=== PATIENT | female | born 1995 | race Caucasian/White ===

== ENCOUNTER 2017-09-01 12:37 | Inpatient (IN) | payer OTHER ==
[~2017-09-01] VITALS: Ht 160 cm; Wt 66.0 kg
--- OUTSIDE RECORDS SUMMARY | ~2017-09-01 | XMS ---
Demographics + + + | Address | [address] | | | [address] | | | [place] [address] | + + + | Preferred Language | Unknown | + + + | Marital Status | Unknown | + + + | Pentecostalism Affiliation | Unknown | + + + | Race | Unknown | + + + | Ethnic Group | Unknown | + + + Author + + + | Author | [facility] | + + + | Organization | [facility] | + + + | Address | [address] | | | [place] [address] | + + + | Phone | | + + + Care Team Providers + + + + | Care Medical Apparatus Model Maker Name | Role | Phone | + + + + Unavailable | Unavailable | + + + + PROBLEMS +---------+ + + +--------+ + + | Type | Condition | ICD9-CM | [id number] | Onset | Condition | SNOMED | | | | Code | Code | Dates | Status | Code | +---------+ + + +--------+ + + | Problem | Fibromyalg | M79.7 | | | Active | [id number] | | | ia | | | | | | | | affecting | | | | | | | | multiple | | | | | | | | sites | | | | | | +---------+ + + +--------+ + + | Problem | Other | G89.29 | | | Active | 49339357 | | | chronic | | | | | | | | pain | | | | | | +---------+ + + +--------+ + + | Problem | Generalize | R52 | | | Active | 51783437 | | | d pain | | | | | | +---------+ + + +--------+ + + | Problem | Encounter | Z34.90 | | | Active | 40727835 | | | for | | | | | | | | supervisio | | | | | | | | n of | | | | | | | | normal | | | | | | | | | | | | | | +---------+ + + +--------+ + + | Problem | Neurologic | R29.818 | | | Active | | | | al | | | | | | | | abnormalit | | | | | | | | y | | | | | | +---------+ + + +--------+ + + | Problem | Sleep | G47.20 | | | Active | 59917485 | | | pattern | | | | | | | | disturbanc | | | | | | | | e | | | | | | +---------+ + + +--------+ + + | Problem | Acute pain | M25.561 | | | Active | 964574448 | | | of right | | | | | | | | knee | | | | | | +---------+ + + +--------+ + + | Problem | Gait | | R26.9 | | Active | 15153115 | | | abnormalit | | | | | | | | y | | | | | | +---------+ + + +--------+ + + | Problem | Fibromyalg | | M79.7 | | Active | 419486087 | | | ia | | | | | | +---------+ + + +--------+ + + | Problem | Psychosis | F29 | | | Active | 36786156 | +---------+ + + +--------+ + + | Problem | Compressio | T14.8 | | | Active | 39519333 | | | n fracture | | | | | | +---------+ + + +--------+ + + | Problem | Spondylist | M43.10 | | | Active | 865546211 | | | hesis | | | | | | +---------+ + + +--------+ + + | Problem | Depression | | F41.8 | | Active | 490984539 | | | with | | | | | | | | anxiety | | | | | | +---------+ + + +--------+ + + | Problem | Degenerati | | M19.90 | | Active | 280488109 | | | ve joint | | | | | | | | disease | | | | | | +---------+ + + +--------+ + + | Problem | History of | Z87.42 | | | Active | 45061641 | | | ovarian | | | | | | | | cyst | | | | | | +---------+ + + +--------+ + + | Problem | Scoliosis | M41.9 | | | Active | 861428257 | +---------+ + + +--------+ + + ALLERGIES + + + + +--------+ | Substance | Reaction | Event Type | Date | Status | + + + + +--------+ | Morphine | rash | Drug Allergy | Jul, | Active | + + + + +--------+ | Vicodin | rash | Drug Allergy | Jul, | Active | + + + + +--------+ | Dilaudid | rash | Drug Allergy | Jul, | Active | + + + + +--------+ SOCIAL HISTORY Never Assessed PLAN OF CARE + +---------+ | Activity | Details | + +---------+ +---+ | | +---+ + + + | Follow Up | prn Reason:null | + + + VITAL SIGNS + + + + | Height | 64 in | 2017-07-24 | + + + + | Weight | 145 lbs | 2017-07-24 | + + + + | BMI | 24.89 kg/m2 | 2017-07-24 | + + + + | Temperature | 98.0 degrees Fahrenheit | 2017-07-24 | + + + + | Heart Rate | 102 /min | 2017-07-24 | + + + + | Blood pressure systolic | 117 mm Hg | 2017-07-24 | + + + + | Blood pressure diastolic | 68 mm Hg | 2017-07-24 | + + + + MEDICATIONS + + + + + + + +--------+ | Medicati | Instruct | Dosage | Frequenc | Start | End Date | Duration | Status | | on | ions | | y | Date | | | | + + + + + + + +--------+ | Folic | Orally | 1 tablet | 24h | | | | Active | | Acid 3 | Once a | | | | | | | | | day | | | | | | | + + + + + + + +--------+ | Fluoxeti | Orally | 1 | 24h | 05 Paul, | | 30 | Active | | ne HCl | Once a | capsule | | 2017 | | day(s) | | | 20 mg | day | in the | | | | | | | | | morning | | | | | | + + + + + + + +--------+ | Procardi | Orally | 1 | 8h | 03 Oct, | | 30 | Active | | a 10 mg | Three | capsule | | 2017 | | day(s) | | | | times a | | | | | | | | | day | | | | | | | + + + + + + + +--------+ | Amoxicil | Orally | 1 tablet | 12h | 06 Oct, | 16 Oct, | 10 | Active | | ritesh 875 | every 12 | | | 2016 | 2016 | day(s) | | | MG | hrs | | | | | | | + + + + + + + +--------+ | | Orally | 1 tablet | 24h | | | | Active | | 28-0.8 | Once a | | | | | | | | MG | day | | | | | | | + + + + + + + +--------+ RESULTS No Results PROCEDURES + + +--------+ + | Procedure | Date Ordered | Result | Body Site | + + +--------+ + | [facility] MED/CURRENT | Jul 24, 2017 | | | | MED MERGE | | | | + + +--------+ + | DOC MEDS VERIFIED | Jul 24, 2017 | | | | W/PT OR RE | | | | + + +--------+ + IMMUNIZATIONS No Known Immunizations MEDICAL (GENERAL) HISTORY + + +---------+ | Type | Description | Date | + + +---------+ | Medical History | fibromyalgia - Toradol was | | | | very effective, unable to | | | | try diclofenac due to | | | | insurance denial, next | | | | trial is gabapentin and | | | | cymbalta | | + + +---------+ | Medical History | Scoliosis | | + + +---------+ | Medical History | Lumbar Radiculopathy | | + + +---------+ | Medical History | Lumbar spondylosis | | + + +---------+ | Medical History | Lumbar spondylosis | | + + +---------+ | Surgical History | dental- wisdom teeth taken | 11/2013 | | | out. | | + + +---------+"
--- OUTSIDE RECORDS SUMMARY | ~2017-09-01 | XMS ---
Demographics + + + | Address | [address] | | | [address] | | | [place] [address] | + + + | Preferred Language | Unknown | + + + | Marital Status | Unknown | + + + | Baptist Affiliation | Unknown | + + + | Race | Unknown | + + + | Ethnic Group | Unknown | + + + Author + + + | Author | [facility] | + + + | Organization | [facility] | + + + | Address | [address] | | | [place] [address] | + + + | Phone | | + + + Care Team Providers + + + + | Care Data Management Consultant Name | Role | Phone | + + + + Unavailable | Unavailable | + + + + PROBLEMS +---------+ + + +--------+ + + | Type | Condition | ICD9-CM | [id number] | Onset | Condition | SNOMED | | | | Code | Code | Dates | Status | Code | +---------+ + + +--------+ + + | Problem | Fibromyalg | M79.7 | | | Active | [id number] | | | ia | | | | | | | | affecting | | | | | | | | multiple | | | | | | | | sites | | | | | | +---------+ + + +--------+ + + | Problem | Other | G89.29 | | | Active | 14097079 | | | chronic | | | | | | | | pain | | | | | | +---------+ + + +--------+ + + | Problem | Generalize | R52 | | | Active | 87779803 | | | d pain | | | | | | +---------+ + + +--------+ + + | Problem | Encounter | Z34.90 | | | Active | 85508382 | | | for | | | [...] | G47.20 | | | Active | 89961795 | | | pattern | | | | | | | | disturbanc | | | | | | | | e | | | | | | +---------+ + + +--------+ + + | Problem | Acute pain | M25.561 | | | Active | 141326523 | | | of right | | | | | | | | knee | | | | | | +---------+ + + +--------+ + + | Problem | Gait | | R26.9 | | Active | 56959643 | | | abnormalit | | | | | | | | y | | | | | | +---------+ + + +--------+ + + | Problem | Fibromyalg | | M79.7 | | Active | 884464214 | | | ia | | | | | | +---------+ + + +--------+ + + | Problem | Psychosis | F29 | | | Active | 77344817 | +---------+ + + +--------+ + + | Problem | Compressio | T14.8 | | | Active | 225874686 | | | n fracture | | | | | | +---------+ + + +--------+ + + | Problem | Spondylist | M43.10 | | | Active | 283493691 | | | hesis | | | | | | +---------+ + + +--------+ + + | Problem | Depression | | F41.8 | | Active | 289263209 | | | with | | | | | | | | anxiety | | | | | | +---------+ + + +--------+ + + | Problem | Degenerati | | M19.90 | | Active | 704496071 | | | ve joint | | | | | | | | disease | | | | | | +---------+ + + +--------+ + + | Problem | History of | Z87.42 | | | Active | 354149371 | | | ovarian | | | | | | | | cyst | | | | | | +---------+ + + +--------+ + + | Problem | Scoliosis | M41.9 | | | Active | 190330863 | +---------+ + + +--------+ + + ALLERGIES Unknown Allergies SOCIAL HISTORY No smoking Hx information available PLAN OF CARE VITAL SIGNS MEDICATIONS + + + + + + + +--------+ | Medicati | Instruct | Dosage | Frequenc | Start | End Date | Duration | Status | | on | ions | | y | Date | | | | + + + + + + + +--------+ | Metronid | Orally | 1 tablet | 12h | 08 Brody, | 15 Brody, | 7 day(s) | Active | | azole | Twice a | | | 2017 | 2017 | | | | 500 MG | day | | | | | | | + + + + + + + +--------+ RESULTS No Results PROCEDURES No Known procedures IMMUNIZATIONS No Known Immunizations"
--- OUTSIDE RECORDS SUMMARY | ~2017-09-01 | XMS ---
Demographics + + + | Address | [address] | | | [address] | | | [place] [address] | + + + | Preferred Language | Unknown | + + + | Marital Status | Unknown | + + + | Hoahaoism Affiliation | Unknown | + + + | Race | Unknown | + + + | Ethnic Group | Unknown | + + + Author + + + | Author | [facility] | + + + | Organization | [facility] | + + + | Address | [address] | | | [place] [address] | + + + | Phone | | + + + Care Team Providers + + + + | Care Billiard Table Assembler Name | Role | Phone | + + + + Unavailable | Unavailable | + + + + PROBLEMS +---------+ + + +--------+ + + | Type | Condition | ICD9-CM | [id number] | Onset | Condition | SNOMED | | | | Code | Code | Dates | Status | Code | +---------+ + + +--------+ + + | Problem | Fibromyalg | M79.7 | | | Active | [id number] | | | ia | | | | | | | | affecting | | | | | | | | multiple | | | | | | | | sites | | | | | | +---------+ + + +--------+ + + | Problem | Other | G89.29 | | | Active | 86756401 | | | chronic | | | | | | | | pain | | | | | | +---------+ + + +--------+ + + | Problem | Generalize | R52 | | | Active | 44806241 | | | d pain | | | | | | +---------+ + + +--------+ + + | Problem | Encounter | Z34.90 | | | Active | 48289030 | | | for | | | [...] | G47.20 | | | Active | 02340889 | | | pattern | | | | | | | | disturbanc | | | | | | | | e | | | | | | +---------+ + + +--------+ + + | Problem | Acute pain | M25.561 | | | Active | 554823160 | | | of right | | | | | | | | knee | | | | | | +---------+ + + +--------+ + + | Problem | Gait | | R26.9 | | Active | 41639117 | | | abnormalit | | | | | | | | y | | | | | | +---------+ + + +--------+ + + | Problem | Fibromyalg | | M79.7 | | Active | 686363321 | | | ia | | | | | | +---------+ + + +--------+ + + | Problem | Psychosis | F29 | | | Active | 71079632 | +---------+ + + +--------+ + + | Problem | Compressio | T14.8 | | | Active | 389438602 | | | n fracture | | | | | | +---------+ + + +--------+ + + | Problem | Spondylist | M43.10 | | | Active | 557260691 | | | hesis | | | | | | +---------+ + + +--------+ + + | Problem | Depression | | F41.8 | | Active | 536931799 | | | with | | | | | | | | anxiety | | | | | | +---------+ + + +--------+ + + | Problem | Degenerati | | M19.90 | | Active | 914963851 | | | ve joint | | | | | | | | disease | | | | | | +---------+ + + +--------+ + + | Problem | History of | Z87.42 | | | Active | 479523077 | | | ovarian | | | | | | | | cyst | | | | | | +---------+ + + +--------+ + + | Problem | Scoliosis | M41.9 | | | Active | 546226368 | +---------+ + + +--------+ + + ALLERGIES Unknown Allergies SOCIAL HISTORY No smoking Hx information available PLAN OF CARE VITAL SIGNS MEDICATIONS Unknown Medications RESULTS No Results PROCEDURES No Known procedures IMMUNIZATIONS No Known Immunizations"
[~2017-09-01 12:37] MED LIST: AMOXICILLIN500 MG PO; FIORICET 50-301 EACH PO; IBUPROFEN600 MG PO; MECLIZINE HCL25 MG PO; MEDROL4 MG PO; NORCO 5-325 TA1 EACH PO; OLANZAPINE10 MG PO; OXYCODONE HCL5 MG PO; PRENATABS RX T1 EACH PO; PROMETHAZINE HC25 M1 PO; SERTRALINE HCL50 MG PO; TRANSDERM-SCOP1 EA TD; VITAFOL-OB+DHA1 EACH PO; ZOFRAN4 MG PO
[2017-09-02] MEDS ORDERED: PRENATABS RX T1 EACH PO (01:34)
--- NOTE | 2017-09-02 09:59 | PR ---
[facility] [address] [facility] [place], [place] [address] Signed Progress Notes IP Datetime Report Generated by CPN: 09/02/2017 09:59 PROGRESS NOTES: [id number] Impression: Normal progression of labor Procedures: Artificial ROM Plan: Continue present management; Anticipate Vaginal Delivery VITAL SIGNS: [id number] Vital Signs: Reviewed; Within Normal Limits EXAM: [id number] Dilatation: 9.0 Effacement: 95 Station: 0 Uterine Contractions: every 2 minutes MEMBRANES: I9181157 Membrane Status: Ruptured Amniotic Fluid Color: Clear ROM Note: AROM without difficulty Comments: Comfortable with Epidural. Fetus A: [id number] FHR Baseline: 125 Variability: Moderate 6-25bpm Accelerations: 15X15 Presentation: Vertex Fetus B: [id number] Signing Physician: Edward Roberts MD CC: *Electronically Signed* 09/02/17 0959 EDWARD ROBERTS MD PATIENT NAME: JOON BONILLA PROGRESS NOTE DATE OF : 95 PHYSICIAN: EDWARD ROBERTS MD RPT #: [id number] REPORT IS CONFIDENTIAL AND NOT TO BE RELEASED WITHOUT AUTHORIZATION
--- NOTE | 2017-09-04 11:04 | PR ---
[facility] [address] [facility] [place] [address] Signed PP Progress Notes Datetime Report Generated by CPN: 09/04/2017 11:04 SUBJECTIVE: [id number] Pain: Within normal limits Nausea/Vomiting: Denies Vital Signs: [id number] Vital Signs: Reviewed; Within Normal Limits Notable Details: PP Hgb/Hct = 9.1/27.0 EXAM: [id number] Abdomen/Uterus: Normal Lochia: Normal Extremities: Normal IMPRESSION/PLAN/PROCEDURES: [id number] Impression: Normal progression Plan: Discharge Procedures: None Progress Notes: Doing well, wants to go home. Signing Physician: Edward Roberts MD CC: *Electronically Signed* 09/04/17 1104 EDWARD ROBERTS MD PATIENT NAME: JOON BONILLA PROGRESS NOTE DATE OF : 95 PHYSICIAN: EDWARD ROBERTS MD RPT #: [id number] REPORT IS CONFIDENTIAL AND NOT TO BE RELEASED WITHOUT AUTHORIZATION
== END 2017-09-04 11:50 | disposition home or self-care (01) | DRG 775 ==
LOC: FBC 09-02 00:04
PROVIDERS: ADMIT General Practice
PROC: 10E0XZZ Delivery of Products of Conception, External Approach (ICD-10-PCS; principal; 2017-09-02)
PROC: 0HQ9XZZ Repair Perineum Skin, External Approach (ICD-10-PCS; 2017-09-02)
PROC: 10907ZC Drainage of Amniotic Fluid, Therapeutic from Products of Conception, Via Natural or Artificial Opening (ICD-10-PCS; 2017-09-02)
DX: O43.193 Other malformation of placenta, third trimester (principal); Z3A.39 39 weeks gestation of pregnancy; Z37.0 Single live birth; O70.0 First degree perineal laceration during delivery
CPT/HCPCS: 01960; 36415; 85027; 99406; J2540; J2590; J3010; J7120

== ENCOUNTER 2017-11-09 00:29 | Emergency (ER) | payer OTHER ==
[~2017-11-09] VITALS: Ht 160 cm; Wt 56.7 kg
[2017-11-09] MEDS ORDERED: LEVSIN0.125 MG PO (01:23)
[2017-11-09] MEDS ORDERED: FLAGYL500 MG PO (01:23)
[2017-11-09] MEDS ORDERED: DICYCLOMINE HCL10 MG PO (03:00)
== END 2017-11-09 03:27 | disposition home or self-care (01) ==
LOC: ED 00:29
DX: K52.9 Noninfective gastroenteritis and colitis, unspecified (principal); Z79.899 Other long term (current) drug therapy; F17.200 Nicotine dependence, unspecified, uncomplicated; Z88.5 Allergy status to narcotic agent
CPT/HCPCS: 74177; 80053; 81001; 83690; 84703; 85025; 96361; 96374; 96375; 96376; 99284; J2405; J2550; J3010; J7030; Q9967

== ENCOUNTER 2018-05-02 13:04 | Emergency (ER) | payer OTHER ==
[~2018-05-02] VITALS: Ht 160 cm; Wt 57.1 kg
[~2018-05-02 13:04] MED LIST changes: +DICYCLOMINE HCL10 MG PO; +FLAGYL500 MG PO; +LEVSIN0.125 MG PO
[2018-05-02] MEDS ORDERED: TRILEPTAL300 MG PO (13:16)
[2018-05-02] MEDS ORDERED: ATIVAN1 MG PO (13:16)
[2018-05-02] MEDS ORDERED: TRAZODONE HCL100 MG PO (13:17)
== END 2018-05-02 13:32 | disposition home or self-care (01) ==
LOC: ED 13:04
DX: M25.561 Pain in right knee (principal)

== ENCOUNTER 2018-05-31 18:23 | Emergency (ER) | payer OTHER ==
[~2018-05-31] VITALS: Ht 160 cm; Wt 57.1 kg
[~2018-05-31 18:23] MED LIST changes: +ATIVAN1 MG PO; +TRAZODONE HCL100 MG PO; +TRILEPTAL300 MG PO
[2018-05-31] MEDS ORDERED: METHYLPREDNISOLO4 M1 PO (18:45)
[2018-05-31] MEDS ORDERED: BACLOFEN10 MG PO (18:45)
[2018-05-31] MEDS ORDERED: NORCO 5-325 TA1 EACH PO (18:45)
== END 2018-05-31 18:51 | disposition home or self-care (01) ==
LOC: ED 18:23
DX: M54.40 Lumbago with sciatica, unspecified side (principal); M99.03 Segmental and somatic dysfunction of lumbar region; M99.02 Segmental and somatic dysfunction of thoracic region; F41.9 Anxiety disorder, unspecified; F17.200 Nicotine dependence, unspecified, uncomplicated; Z88.5 Allergy status to narcotic agent; Z79.899 Other long term (current) drug therapy
CPT/HCPCS: 99283

== ENCOUNTER 2019-04-22 00:04 | Inpatient (IN) | payer OTHER ==
[~2019-04-22] VITALS: Ht 162.6 cm; Wt 80.0 kg
[~2019-04-22 00:04] MED LIST changes: +BACLOFEN10 MG PO; +IRON240 MG PO; +METHYLPREDNISOLO4 M1 PO; +PRENA1 CHEW TA1.4 MG PO
--- NOTE | 2019-04-22 08:18 | PR ---
[facility] [address] [facility] [place], [place] [address] Signed Progress Notes IP Datetime Report Generated by CPN: 04/22/2019 08:18 PROGRESS NOTES: [id number] Impression: Normal progression of labor Procedures: Artificial ROM Plan: Continue present management; Anticipate Vaginal Delivery VITAL SIGNS: J5501992 Vital Signs: Reviewed; Within Normal Limits EXAM: N6963440 Dilatation: 3.0 Effacement: 50 Station: -3 Uterine Contractions: every 3-5 minutes MEMBRANES: C5126118 Membrane Status: Ruptured Amniotic Fluid Color: Clear ROM Note: AROM without difficulty, with small amount clear fluid noted. Vertex well-applied to cervix. Comments: Doing well with contractions, wants to try without Epidural at this time. Fetus A: [id number] FHR Baseline: 130 Variability: Moderate 6-25bpm Accelerations: 15X15 Presentation: Vertex Fetus B: [id number] Signing Physician: Edward Roberts MD Copies: ~ *Electronically Signed* 04/22/19817 EDWARD ROBERTS MD PATIENT NAME: JOON MAGDALENO PROGRESS NOTE DATE OF : 95 PHYSICIAN: EDWARD ROBERTS MD RPT #: [id number] REPORT IS CONFIDENTIAL AND NOT TO BE RELEASED WITHOUT AUTHORIZATION
--- NOTE | 2019-04-22 11:19 | PR ---
[facility] [address] [facility] [place], [place] [address] Signed Progress Notes IP Datetime Report Generated by CPN: 04/22/2019 11:19 PROGRESS NOTES: [id number] Impression: Normal progression of labor Procedures: Artificial ROM Plan: Continue present management VITAL SIGNS: Q0057842 Vital Signs: Reviewed; Within Normal Limits EXAM: [id number] Dilatation: 5.0 Effacement: 80 Station: 0 Uterine Contractions: every 3-5 minutes MEMBRANES: J2457689 Membrane Status: Ruptured Amniotic Fluid Color: Clear ROM Note: AROM without difficulty, with small amount clear fluid noted. Vertex well-applied to cervix. Comments: Comfortable with Epidural Fetus A: [id number] FHR Baseline: 135 Variability: Moderate 6-25bpm Accelerations: 15X15 Presentation: Vertex Fetus B: [id number] Signing Physician: Edward Roberts MD Copies: ~ *Electronically Signed* 04/22/19 1119 EDWARD ROBERTS MD PATIENT NAME: JOON MAGDALENO PROGRESS NOTE DATE OF : [birth year] PHYSICIAN: EDWARD ROBERTS MD RPT #: [id number] REPORT IS CONFIDENTIAL AND NOT TO BE RELEASED WITHOUT AUTHORIZATION
--- NOTE | 2019-04-22 13:35 | PR ---
[facility] [address] [facility] [place], [place] [address] Signed Progress Notes IP Datetime Report Generated by CPN: 04/22/2019 13:34 PROGRESS NOTES: [id number] Impression: Normal progression of labor Procedures: Artificial ROM Plan: Anticipate Vaginal Delivery VITAL SIGNS: [id number] Vital Signs: Reviewed; Within Normal Limits EXAM: L0394270 Dilatation: 9.5 Effacement: 90 Station: 0 Uterine Contractions: every 2-3 minutes MEMBRANES: K1719789 Membrane Status: Ruptured Amniotic Fluid Color: Clear ROM Note: AROM without difficulty, with small amount clear fluid noted. Vertex well-applied to cervix. Comments: Comfortable with Epidural. Will try "hands-knees" to see if fetus will rotate to OA. Fetus A: [id number] FHR Baseline: 130 Variability: Moderate 6-25bpm Accelerations: 15X15 Presentation: Vertex Other Presentation: ROP Fetus B: [id number] Signing Physician: Edward Roberts MD Copies: ~ *Electronically Signed* 04/22/19 1334 EDWARD ROBERTS MD PATIENT NAME: JOON MAGDALENO PROGRESS NOTE DATE OF : 95 PHYSICIAN: EDWARD ROBERTS MD RPT #: [id number] REPORT IS CONFIDENTIAL AND NOT TO BE RELEASED WITHOUT AUTHORIZATION
--- NOTE | 2019-04-23 10:10 | PR ---
[facility] [address] [facility] [place] [address] Signed PP Progress Notes Datetime Report Generated by CPN: 04/23/2019 10:10 SUBJECTIVE: [id number] Pain: Within normal limits Nausea/Vomiting: Denies Vital Signs: F8007826 Vital Signs: Reviewed; Within Normal Limits Notable Details: PP Hgb/Hct = 10.5/31.3 EXAM: Y0235005 Abdomen/Uterus: Normal Lochia: Normal Extremities: Normal IMPRESSION/PLAN/PROCEDURES: E2639171 Impression: Normal progression Plan: Continue present management Procedures: None Progress Notes: Doing well, without complaint. Signing Physician: Edward Roberts MD Copies: ~ *Electronically Signed* 04/23/19 1010 EDWARD ROBERTS MD PATIENT NAME: JOON MAGDALENO PROGRESS NOTE DATE OF : 95 PHYSICIAN: EDWARD ROBERTS MD RPT #: [id number] REPORT IS CONFIDENTIAL AND NOT TO BE RELEASED WITHOUT AUTHORIZATION
--- NOTE | 2019-04-24 12:13 | PR ---
[facility] [address] [facility] [place] [address] Signed PP Progress Notes Datetime Report Generated by CPN: 04/24/2019 12:13 SUBJECTIVE: [id number] Pain: Within normal limits Nausea/Vomiting: Denies Vital Signs: I8283498 Vital Signs: Reviewed; Within Normal Limits Notable Details: PP Hgb/Hct = 10.5/31.3 EXAM: [id number] Abdomen/Uterus: Normal Lochia: Normal Extremities: Normal IMPRESSION/PLAN/PROCEDURES: H4430004 Impression: Normal progression Plan: Discharge Procedures: None Progress Notes: Doing well, without complaint, ready to go home. Signing Physician: Edward Roberts MD Copies: ~ *Electronically Signed* 04/24/19 1213 EDWARD ROBERTS MD PATIENT NAME: JOON MAGDALENO PROGRESS NOTE DATE OF : 95 PHYSICIAN: EDWARD ROBERTS MD RPT #: [id number] REPORT IS CONFIDENTIAL AND NOT TO BE RELEASED WITHOUT AUTHORIZATION
== END 2019-04-24 12:10 | disposition home or self-care (01) | DRG 807 ==
LOC: FBC 00:04
PROVIDERS: ADMIT General Practice
PROC: 10E0XZZ Delivery of Products of Conception, External Approach (ICD-10-PCS; principal; 2019-04-22)
PROC: 10907ZC Drainage of Amniotic Fluid, Therapeutic from Products of Conception, Via Natural or Artificial Opening (ICD-10-PCS; 2019-04-22)
PROC: 3E0P7VZ Introduction of Hormone into Female Reproductive, Via Natural or Artificial Opening (ICD-10-PCS; 2019-04-22)
PROC: 00HU33Z Insertion of Infusion Device into Spinal Canal, Percutaneous Approach (ICD-10-PCS; 2019-04-22)
PROC: 3E0R3BZ Introduction of Anesthetic Agent into Spinal Canal, Percutaneous Approach (ICD-10-PCS; 2019-04-22)
DX: O76 Abnormality in fetal heart rate and rhythm complicating labor and delivery (principal); Z37.0 Single live birth; O99.02 Anemia complicating childbirth; D64.9 Anemia, unspecified; O99.344 Other mental disorders complicating childbirth; F31.9 Bipolar disorder, unspecified; Z3A.39 39 weeks gestation of pregnancy; F20.9 Schizophrenia, unspecified; Z87.891 Personal history of nicotine dependence; Z88.5 Allergy status to narcotic agent; Z86.19 Personal history of other infectious and parasitic diseases
CPT/HCPCS: 36415; 85027; J2590; J2795; J7120

== ENCOUNTER 2020-06-20 14:39 | Emergency (ER) | payer OTHER ==
[~2020-06-20] VITALS: Ht 162.6 cm; Wt 76.7 kg
--- OUTSIDE RECORDS SUMMARY | 2020-06-20 14:42 | XMS ---
PreManage Notification: JOON MAGDALENO [employer] Social [employer] Events No recent Security Events currently on file CRITERIA MET - [facility] CARE PROVIDERS EDWARD ROBERTS [facility] 03/11/2019-Current PHONE: Unknown KRISSY THIBODEAUX [facility] 06/03/2018-Current PHONE: [phone] Guidelines Source: [employer] [facility] Guidelines Date: 01/24/2020 Additional Information: Receiving mental health services through [employer] Please contact the crisis line ([phone]) if necessary.\T\nbsp; E.D. VISIT COUNT (12 MO.) [address] [place] [address] TOTAL 1 NOTE: Visits indicate total known visits. ED/UCC VISIT TRACKING (12 MO.) 06/20/2020 14:[address] [facility] [place] TYPE: Emergency COMPLAINT: - BREAST PROBLEM INPATIENT VISIT TRACKING (12 MO.) No inpatient visits to display in this time frame [email or web address]
[2020-06-20] MEDS ORDERED: NEXPLANON68 MG SUB-Q (14:57)
[2020-06-20] MEDS ORDERED: LAMICTAL XR50 MG PO (14:57)
[2020-06-20] MEDS ORDERED: DICLOXACILLIN500 MG PO (15:28)
[2020-06-20] MEDS ORDERED: NORCO 5-325 TA1 EACH PO (15:28)
== END 2020-06-20 15:36 | disposition home or self-care (01) ==
LOC: ED 14:39
DX: N61.0 Mastitis without abscess (principal); F25.9 Schizoaffective disorder, unspecified; F43.10 Post-traumatic stress disorder, unspecified; F31.9 Bipolar disorder, unspecified; F41.9 Anxiety disorder, unspecified; F17.200 Nicotine dependence, unspecified, uncomplicated; Z79.899 Other long term (current) drug therapy
CPT/HCPCS: 99283

== ENCOUNTER 2020-08-28 06:07 | Day surgery (SDC) | payer OTHER ==
[~2020-08-28] VITALS: Ht 162.6 cm; Wt 75.5 kg
--- NOTE | ~2020-08-28 | OR ---
[facility] [address] [place], [place] [address] Draft DATE OF OPERATION: 08/28/2020 SURGEON: Edward Hanson MD PREOPERATIVE DIAGNOSIS: Pelvic pain. POSTOPERATIVE DIAGNOSES: 1. Pelvic pain. 2. Endometriosis of pelvic peritoneum. PROCEDURE: Laparoscopy with excision of endometriosis. SERVICE OFFICER: Dr. Huitron. ANESTHESIA: General. ESTIMATED BLOOD LOSS: 20 mL. COMPLICATIONS: None. DRAINS: None. FINDINGS: Cervix, normal size and shape. Uterus, normal size and shape. The anterior cul-de-sac was free of any endometriosis or adhesions. The posterior cul-de-sac was free of any endometriosis or adhesions, but the right uterosacral ligament was somewhat prominent extending more caudally than the other side with deep pockets of peritoneum on either side of the ligament, possibly from deep infiltrating endometriosis, but no lesions seen in either pocket. The left tube was normal length and normal-appearing fimbriated end and no adhesions. Left ovary is normal size and shape without any evidence of endometriosis or adhesions. The left pelvic sidewall; however, had white scarred area with puckering of the peritoneum just above the uterosacral ligament. No other lesions were seen. The right tube was normal length with normal-appearing fimbriated end and no PATIENT NAME: JOON ZELAYA OPERATIVE REPORT DATE OF : [birth year] REPORT #: [id number] PHYSICIAN: EDWARD HANSON MD PCP: MARCIAL MATSON MD REPORT IS CONFIDENTIAL AND NOT TO BE RELEASED WITHOUT AUTHORIZATION [facility] [address] [place], [place] [address] Draft adhesions. Right ovary is normal size and shape without any evidence of endometriosis or adhesions. Right pelvic sidewall was free of any endometriosis or adhesions. The appendix appeared normal. Rest of the pelvis was free of any masses or adhesions. DESCRIPTION OF PROCEDURE: The patient was brought to the operating room and placed in supine position. After adequate general anesthesia was obtained, she was placed in dorsal lithotomy position, prepped and draped in the usual sterile fashion. Vasquez catheter was placed in the bladder and a weighted speculum placed in the vagina. The anterior lip of the cervix was grasped with an Allis clamp. Cervix was serially dilated and a Hulka clamp carefully inserted through the cervix and attached to the anterior lip of the cervix. Allis clamp and weighted speculum were removed. Attention was then drawn to the abdomen. A small infraumbilical skin incision was made with a scalpel after injecting area with 0.25% Marcaine with epinephrine. A 5 mm direct entry trocar and sleeve was placed in the incision with the laparoscope within the trocar and the abdomen was lifted. The gas was attached to the sleeve and the direct entry trocar slowly, steadily pushed through the anterior abdominal wall until the tip of the trocar entered the abdomen. The gas began filling the abdomen. The trocar was then placed in the rest of the way in the trocar removed and the laparoscope video attachment was placed through the sleeve on each side just below the level of the umbilicus and approximately 10 cm lateral to the midline. The abdominal wall was transilluminated and avascular portion injected with 0.25% Marcaine with epinephrine. A small skin incision made with a scalpel and then a 5 mm bladed trocar and sleeve placed under direct visualization into the abdomen on each side. The balloons were filled with air and the trocar was removed and the instruments were then able to be placed through both sides. The entire pelvis was carefully inspected, the above findings were noted. Manuela graspers were then used to grasp the peritoneum just over the left sidewall endometriosis and was pulled medially, tenting the peritoneum away from the rest of the sidewall. Laparoscopic scissors were used to carefully chemo just the peritoneum and the scissors used to bluntly undermine the peritoneum and then cut the peritoneum around the endometriosis removing the endometrial implant. This was taken out through the sleeve and passed off table to be sent to Pathology for identification. This area of dissection was irrigated. There was small amount of bleeding right against the uterosacral ligament. This was grasped. The with the edge of the peritoneum carefully grasped with the Maryland forceps and the two small bleeding areas cauterized with the Maryland forceps as a Bovie and good hemostasis was then obtained. The entire pelvis was irrigated, suctioned and examined, noted to have good hemostasis. Tisseel was then sprayed over the area of the biopsy site for further hemostasis and then all instruments removed after the gas allowed and the sleeves removed after the gas was allowed to PATIENT NAME: JOON ZELAYA OPERATIVE REPORT DATE OF : 95 REPORT #: [id number] PHYSICIAN: EDWARD HANSON MD PCP: MARCIAL MATSON MD REPORT IS CONFIDENTIAL AND NOT TO BE RELEASED WITHOUT AUTHORIZATION [address] [address] Draft escape. The skin incisions were closed using subcuticular stitches of 4-0 Vicryl suture. The Hulka clamp was removed and the cervix was observed and noted to have good hemostasis. The patient tolerated the procedure well and went to the recovery room in good condition. The sponge, needle, and instrument counts were correct x3 the procedure. The peritoneal endometriosis was sent to Pathology for identification. Edward Hanson MD MJB/MODL /[id number] Copies: ~ PATIENT NAME: JOON ZELAYA OPERATIVE REPORT DATE OF : 95 REPORT #: [id number] PHYSICIAN: EDWARD HANSON MD PCP: MARCIAL MATSON MD REPORT IS CONFIDENTIAL AND NOT TO BE RELEASED WITHOUT AUTHORIZATION
[~2020-08-28 06:07] MED LIST changes: +ABILIFY2 MG PO; +DICLOXACILLIN500 MG PO; +LAMICTAL XR50 MG PO; +NEXPLANON68 MG SUB-Q; +ZOLOFT25 MG PO
[2020-08-28] MEDS ORDERED: IBUPROFEN IB200 MG PO (06:20)
--- NOTE | 2020-08-28 09:17 | NUR ---
08/28/20 0917 Juliette Cabello 0911 PT ARRIVED TO PACU ON 6L VIA MASK WITH ORAL AIRWAY IN PLACE. RESP EVEN AND UNLABORED.
--- NOTE | 2020-08-28 10:05 | NUR ---
ICED WATER AND APPLESAUCE GIVEN. PATIENT IS SITTING UP IN BED DRINKING AND TOLERATING THAT WELL. HER SPOUSE IS AT THE BEDSIDE. CALL LIGHT IS WITHIN REACH.
[2020-08-28] MEDS ORDERED: ULTRAM50 MG PO (10:26)
--- NOTE | 2020-08-28 11:33 | NUR ---
LE 1110: PATIENT IS UP TO THE BATHROOM WITH MY STANDBY. PATIENT AMBULATES WELL AND VOIDS 225 OF BLOOD TINGED URINE. DISCHARGE INSTRUCTIONS ARE GIVEN AND PATIENT SPOUSE BOTH VERBALIZE UNDERSTANDING. PATIENT IS GETTING DRESSED IN HER SPOUSE'S PRESENCE. PATIENT TRANSFERS HERSELF TO THE WHEELCHAIR AND THEN TO THE PERSONAL VEHICLE AND TOLERATES THAT WELL.
--- NOTE | 2020-08-29 12:18 | PATH ---
[facility] [address] [place], [place] [address] Signed SPECIMEN(S): A PELVIC PERITONEUM SPECIMEN SOURCE: A. PELVIC PERITONEUM CLINICAL HISTORY: Pelvic pain, deep dyspareunia. Diagnostic laparoscopy. FINAL PATHOLOGIC DIAGNOSIS: Pelvic peritoneum, biopsy: - Endometriosis. NAL:cml:C2NR MICROSCOPIC EXAMINATION: Histologic sections of all submitted blocks are examined by light microscopy. These findings, together with the gross examination, support the pathologic diagnosis. GROSS DESCRIPTION: The specimen, labeled "AL, endometriosis of pelvic peritoneum," is received in formalin and consists of one pink-pineda, soft tissue fragment that measures 0.6 x 0.5 x 0.2 cm. The specimen is submitted in toto in a single cassette (A1). JS (under the direct supervision of a pathologist) The Gross Description was prepared using a voice recognition system. The report was reviewed for accuracy; however, sound-alike word errors, addition and/or deletions may occur. If there is any question about this report, please contact Client Services. PERFORMING LABORATORY: The technical component was performed by [facility], [address] [place] [id number] (Streets And Buildings Decorator: Tamie Oscar MD; CLIA# [id number]). Professional interpretation was performed by [facility], [address] [address] (CLIA# [id number]). Diagnostician: Colette Almodovar MD Pathologist Electronically Signed 08/29/2020 PATIENT NAME: JOON ZELAYA PATHOLOGY DATE OF : 95 REPORT #: [id number] PHYSICIAN: PAM PATHOLOGY PCP: MARCIAL MATSON MD REPORT IS CONFIDENTIAL AND NOT TO BE RELEASED WITHOUT AUTHORIZATION [address] [address] Signed Copies: ~ PATIENT NAME: JOON ZELAYA PATHOLOGY DATE OF : 95 REPORT #: [id number] PHYSICIAN: PAM PATHOLOGY PCP: MARCIAL MATSON MD REPORT IS CONFIDENTIAL AND NOT TO BE RELEASED WITHOUT AUTHORIZATION
== END 2020-08-28 11:30 | disposition home or self-care (01) ==
LOC: DS 06:07 → OPS 06:07 → DS 08:45 → OPS 11:30
PROVIDERS: ATTEND General Practice
PROC: 0DBW4ZZ Excision of Peritoneum, Percutaneous Endoscopic Approach (ICD-10-PCS; principal; 2020-08-28 06:45)
DX: N80.3 Endometriosis of pelvic peritoneum (principal); M79.7 Fibromyalgia; F25.9 Schizoaffective disorder, unspecified; F32.9 Major depressive disorder, single episode, unspecified; F17.210 Nicotine dependence, cigarettes, uncomplicated; Z79.899 Other long term (current) drug therapy; Z88.5 Allergy status to narcotic agent
CPT/HCPCS: J0131; J1100; J1885; J2001; J2405; J2704; J3010; J7121

== ENCOUNTER 2021-01-26 20:35 | Emergency (ER) | payer OTHER ==
[~2021-01-26] VITALS: Ht 162.6 cm; Wt 79.4 kg
[~2021-01-26 20:35] MED LIST changes: +IBUPROFEN IB200 MG PO; +ULTRAM50 MG PO
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
[2021-01-26] MEDS ORDERED: GRALISE300 MG PO (21:10)
[2021-01-26] MEDS ORDERED: HYDROXYZINE HCL25 MG PO (21:11)
[2021-01-26] MEDS ORDERED: GABAPENTIN300 MG PO (21:12)
== END 2021-01-27 00:04 | disposition home or self-care (01) ==
LOC: ED 20:35
DX: S40.011A Contusion of right shoulder, initial encounter (principal); S20.214A Contusion of middle front wall of thorax, initial encounter; S30.0XXA Contusion of lower back and pelvis, initial encounter; D18.09 Hemangioma of other sites; V43.62XA Car passenger injured in collision with other type car in traffic accident, initial encounter; F17.200 Nicotine dependence, unspecified, uncomplicated; Z88.5 Allergy status to narcotic agent; Z79.899 Other long term (current) drug therapy
CPT/HCPCS: 71045; 71260; 72125; 73030; 74177; 80053; 82150; 82550; 83690; 84703; 85025; 86850; 86900; 86901; 96374; 96375; 96376; 99284-25; J1170; J2405; Q9967

== ENCOUNTER 2021-03-30 08:44 | Emergency (ER) | payer OTHER ==
[~2021-03-30] VITALS: Ht 162.6 cm; Wt 73.5 kg
[~2021-03-30 08:44] MED LIST changes: +GABAPENTIN300 MG PO; +GRALISE300 MG PO; +HYDROXYZINE HCL25 MG PO
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
[2021-03-30] MEDS ORDERED: PRENATA CHEWAB1 EACH PO (08:53)
[2021-03-30] MEDS ORDERED: PROMETHAZINE HC25 M1 PO (11:09)
== END 2021-03-30 11:16 | disposition home or self-care (01) ==
LOC: ED 08:44
DX: O20.0 Threatened abortion (principal); Z3A.01 Less than 8 weeks gestation of pregnancy; Z88.5 Allergy status to narcotic agent
CPT/HCPCS: 76801; 80053; 81001; 84702; 85025; 96374; 99284-25; J2550; J7030

== ENCOUNTER 2021-10-30 11:50 | Inpatient (IN) | payer OTHER ==
[~2021-10-30 11:50] MED LIST changes: +PRENATA CHEWAB1 EACH PO
--- NOTE | 2021-10-30 12:35 | NUR ---
RT COLLECTED RAPID COVID 19, RSV, AND FLU SWAB PER DR REQUEST USING IN HOUSE LAB WITH NO COMPLICATIONS AT THIS TIME.
--- NOTE | 2021-10-30 14:23 | PR ---
[facility] [place] [facility] [address] [place], [place] [address] Signed Progress Notes IP Datetime Report Generated by JADEN: 10/30/2021 14:23 PROGRESS NOTES: [id number] Impression: Normal Progression of Labor; Reassuring Heart Rate Procedures: Artificial ROM; Scalp Electrode Plan: Continue Present Management; Anticipate Vaginal Delivery Informed Consent Obtain: Vaginal Delivery VITAL SIGNS: [id number] Vital Signs: Reviewed; Within Normal Limits VS Notable Details: mild tachycardia EXAM: [id number] Dilatation: 7.0 Effacement: 80 Station: -2 Contractions: q 2-3 min per pt MEMBRANES: [id number] Pooling: Negative Comments: Pt seen and examined. More comfortable w/ epidural. Discussed AROM and completed AROM after verbal consent obatained and vertex noted to be well applied. Bloody amniotic fluid noted. FSE placed w/out difficulty. Cervix noted to be quite stretchy. Anticipate soon. FETUS A: [id number] FHR Baseline: 130 Variability: Moderate 6-25bpm Accelerations: None Decelerations: None FHR Category: Category I Presentation: Vertex Comments on Fetus A: No evidence of metabolic acidosis FETUS B: [id number] Signing Physician: Bronson Huitron DO Copies: ~ *Electronically Signed* 10/30/21 1421 BRONSON HUITRON DO PATIENT NAME: JOON ZELAYA PROGRESS NOTE DATE OF : 95 PHYSICIAN: BRONSON HUITRON DO RPT #: [id number] REPORT IS CONFIDENTIAL AND NOT TO BE RELEASED WITHOUT AUTHORIZATION
--- NOTE | 2021-10-31 08:29 | PR ---
[facility] [address] [place], [place] [address] Signed PP Progress Notes Datetime Report Generated by CPN: 10/31/2021 08:29 SUBJECTIVE: [id number] Pain: Within Normal Limits Nausea/Vomiting: Denies Flatus: Yes Bowel Movement: No Vital Signs: [id number] Vital Signs: Reviewed; Within Normal Limits Cardiovascular: Normal Respiratory: Normal Abdomen/Uterus: Normal Lochia: Normal Vulva/Perineum: Not Done Breasts: Not Done CVA Tenderness: Normal Extremities: Normal Incision: Not Applicable Progress: Normal Exam Comments: Fundus firm U-2 nontender. IMPRESSION/PLAN/PROCEDURES: [id number] Impression: Normal Progression Plan: Discharge Procedures: None Progress Notes: Pt seen and examined. Doing well. Ambulating, voiding, and tolerating full diet. Pain and lochia minimal. well. No fevers/chills or other concerns. Planning vasectomy for contraception. Reviewed instructions in detail. No questions or concerns. Signing Physician: Bronson Huitron DO Copies: ~ *Electronically Signed* 10/31/21 0846 BRONSON HUITRON DO PATIENT NAME: JOON ZELAYA RECORD #: [id number] PROGRESS NOTE DATE OF : 95 PHYSICIAN: BRONSON HUITRON DO RPT #: [id number] REPORT IS CONFIDENTIAL AND NOT TO BE RELEASED WITHOUT AUTHORIZATION
== END 2021-10-31 16:20 | disposition home or self-care (01) | DRG 807 ==
LOC: FBCO 11:50 → FBC 12:10
PROVIDERS: ADMIT Obstetrics & Gynecology; ATTEND Obstetrics & Gynecology
PROC: 10E0XZZ Delivery of Products of Conception, External Approach (ICD-10-PCS; principal; 2021-10-30)
PROC: 10E0XZZ Delivery of Products of Conception, External Approach (ICD-10-PCS; 2021-10-30)
PROC: 10907ZC Drainage of Amniotic Fluid, Therapeutic from Products of Conception, Via Natural or Artificial Opening (ICD-10-PCS; 2021-10-30)
PROC: 3E0R3BZ Introduction of Anesthetic Agent into Spinal Canal, Percutaneous Approach (ICD-10-PCS; 2021-10-30)
PROC: 00HU33Z Insertion of Infusion Device into Spinal Canal, Percutaneous Approach (ICD-10-PCS; 2021-10-30)
DX: O99.02 Anemia complicating childbirth (principal); Z37.0 Single live birth; O43.123 Velamentous insertion of umbilical cord, third trimester; Z3A.39 39 weeks gestation of pregnancy; Z86.16 Personal history of COVID-19; Z20.822 Contact with and (suspected) exposure to COVID-19; O99.334 Smoking (tobacco) complicating childbirth; F17.210 Nicotine dependence, cigarettes, uncomplicated; Z88.5 Allergy status to narcotic agent; Z88.6 Allergy status to analgesic agent; D64.9 Anemia, unspecified
CPT/HCPCS: 01960; 85027; A9270; C9803; J2590; J2795; J3010; J7121; U0003

== ENCOUNTER 2023-03-15 07:43 | Emergency (ER) | payer OTHER ==
[~2023-03-15] VITALS: Ht 162.6 cm; Wt 80.6 kg
[2023-03-15] MEDS ORDERED: HYDROXYZINE HCL25 MG PO (07:59)
[2023-03-15] MEDS ORDERED: HALOPERIDOL0.5 MG PO (07:59)
[2023-03-15] MEDS ORDERED: IBUPROFEN800 MG PO (07:59)
[2023-03-15] MEDS ORDERED: ESCITALOPRAM OX10 MG PO (08:00)
[2023-03-15] MEDS ORDERED: AMOX TR-K CLV1 EAC1 PO (09:11)
[2023-03-15] MEDS ORDERED: NEURONTIN300 MG PO (09:11)
[2023-03-15 09:25] VITALS: BP 120/71
== END 2023-03-15 09:25 | disposition home or self-care (01) ==
LOC: ED 07:43
DX: M79.7 Fibromyalgia (principal); J02.9 Acute pharyngitis, unspecified; R51.9 Headache, unspecified; F43.10 Post-traumatic stress disorder, unspecified; Z88.5 Allergy status to narcotic agent; Z79.899 Other long term (current) drug therapy
CPT/HCPCS: 36415; 70450; 80053; 84703; 85025; 86140; 96374; 99284-25; J1885; J7030

== ENCOUNTER 2023-09-15 05:37 | Day surgery (SDC) | payer OTHER ==
[2023-09-08 11:15] VITALS: BP 111/86
[~2023-09-15] VITALS: Ht 162.6 cm; Wt 81.8 kg
--- NOTE | ~2023-09-15 | OR ---
[facility] [address] [place], [place] [address] Draft DATE OF OPERATION: 09/15/2023 SURGEON: Bronson Huitron DO PREOPERATIVE DIAGNOSES: 1. Abnormal uterine bleeding. 2. Dysmenorrhea. 3. Dyspareunia. 4. History of endometriosis. POSTOPERATIVE DIAGNOSES: 1. Abnormal uterine bleeding. 2. Dysmenorrhea. 3. Dyspareunia. 4. History of endometriosis. 5. Pelvic congestion syndrome. PROCEDURES PERFORMED: 1. Total laparoscopic hysterectomy. 2. Bilateral salpingectomy. 3. Cystoscopy. TYPESETTER PERFORATOR OPERATOR: Liliana Bustillo MD. ANESTHESIA: General. ESTIMATED BLOOD LOSS: 30 mL. SPECIMENS: 1. Uterus and cervix. 2. Bilateral fallopian tubes. DRAINS: Vasquez to gravity. FINDINGS: Normal external genitalia with normal clitoris, urethral meatus, bilateral [place]'s PATIENT NAME: JOON RABAGO OPERATIVE REPORT DATE OF : 95 REPORT #: [id number] PHYSICIAN: BRONSON HUITRON) PCP: MARCIAL MATSON MD REPORT IS CONFIDENTIAL AND NOT TO BE RELEASED WITHOUT AUTHORIZATION [facility] [address] [place], [place] [address] Draft Bartholin's glands. Normal vagina with a somewhat widened vaginal hiatus. Normal cervix with good apical support. On laparoscopy, normal right upper quadrant. Appendix, uterus, tubes, and ovaries. Prominent pelvic vascular consistent with pelvic congestion syndrome. Retracted peritoneum lateral to the uterosacral ligaments, but no evidence of residual endometriosis. Excellent hemostasis and apical support at the end of the procedure. Normal bladder with bilateral ureteral jets on cystoscopy. COMPLICATIONS: None. INDICATIONS: Ms. Rabago is a very pleasant 27-year-old, G5, P5 female who presents for abnormal uterine bleeding, dysmenorrhea, dyspareunia, and history of endometriosis. She has failed conservative therapy and desires definitive treatment with total laparoscopic hysterectomy, bilateral salpingectomy, and cystoscopy. Risks, benefits, and alternatives were discussed in detail with the patient. Discussed that while hysterectomy we will treat bleeding if residual pelvic pain as noted, additional therapies may be recommended. The patient understands and wishes to proceed with the procedure. PROCEDURE IN DETAIL: The patient was taken to the operating room where a time-out was performed to confirm correct patient and correct procedure. General anesthesia was adequately established. The patient was prepped and draped in dorsal lithotomy position with feet in Yellofin stirrups. ICPs were on, running. The patient received Ancef 2 g preoperatively per SCIP protocol. No preoperative heparin was indicated based on Caprini scoring. A Vasquez catheter was inserted. A weighted speculum was placed in the vagina and the anterior lip of the cervix was grasped with an Allis clamp. The cervix gently dilated using Hegar dilators and a VCare uterine manipulator was placed without difficulty. Surgeon's gloves were changed and attention was turned to the abdomen. The base of the umbilicus was infiltrated with 0.25% Marcaine with epinephrine and a vertical skin incision was made using a surgical scalpel. The fascia was grasped with hemostats, elevated, and entered sharply with Metzenbaum scissors. Peritoneum was entered bluntly and a Bhardwaj operative port was placed without difficulty. Pneumoperitoneum was established. Survey of the abdomen and pelvis was performed. A 5 mm assist port was placed in the left lower quadrant under direct visualization without complication. An 8 mm expanding port was placed in the right lower quadrant under direct visualization without complication. Normal right upper quadrant, stomach, appendix, colon, bilateral tubes, ovaries, and uterus were identified. There are very prominent vessels of the pelvis consistent with pelvic congestion syndrome. The peritoneum superior and lateral to the uterosacral ligaments was quite retracted against the pelvic sidewall. However, after detailed examination, no residual endometriosis was appreciated in this area. The left fallopian PATIENT NAME: JOON RABAGO OPERATIVE REPORT DATE OF : 95 REPORT #: [id number] PHYSICIAN: BRONSON HUITRON (CHRISTELLE) DO PCP: MARCIAL MATSON MD REPORT IS CONFIDENTIAL AND NOT TO BE RELEASED WITHOUT AUTHORIZATION [facility] [address] [place], [place] [address] Draft tube was grasped at the fimbriated end, elevated and divided along the mesosalpinx and delivered to the assist port with excellent hemostasis. The utero-ovarian ligament on the left was fulgurated and divided with excellent hemostasis. The round ligament was fulgurated and divided. The leaves of the broad ligament were dissected from the midportion of the round to the angle of the vaginal cup anteriorly and to the uterosacral ligament posteriorly. Both these dissections were carried across the superior and inferior edge of the vaginal cup exposing the uterine vessels. The uterine vessels were fulgurated and divided with excellent hemostasis. The process was repeated on the right with division of the fallopian tube along the mesosalpinx, fulguration, division of the utero-ovarian ligament, the round ligament, and dissection of the broad ligaments. The uterine vessels on the right were identified, fulgurated and divided. A small amount of oozing was noted. This was made hemostatic with careful fulguration. Colpotomy was then performed using Sonicision device without difficulty. The uterus and cervix were delivered through the vagina and sent to pathology for further evaluation. Pneumoperitoneum was reestablished by placing a wet lap sponge inside of operative glove inside the vagina. The colpotomy was reapproximated using V-Loc suture with an Endostitch device with careful attention to incorporate the uterosacral ligaments and vaginal epithelium with each bite. Excellent apical support and hemostasis was appreciated. The pelvis was irrigated and found to be hemostatic. Tisseel was applied to the dissection site and pneumoperitoneum was reduced. Trocars were removed and infraumbilical fascia was reapproximated using 0 Vicryl in a running nonlocked manner. Skin was reapproximated using 4-0 Monocryl in subcuticular stitch with excellent hemostasis. Attention was turned to cystoscopy. The Vasquez catheter was removed and a 70-degree cystoscope was placed in the urethral meatus and advanced under direct visualization of the bladder. Normal bladder with bilateral ureteral jets was appreciated. The bladder was drained. Vasquez catheter was inserted. The patient was taken to PACU in good and stable condition. Sponge, needle, and instrument counts were correct x2 at the end of the procedure. Dr. Bustillo was present, participated in all portions of the procedure. DO JOSE Lobo/BHARATH /[id number] PATIENT NAME: JOON RABAGO OPERATIVE REPORT DATE OF : 95 REPORT #: [id number] PHYSICIAN: BRONSON HUITRON DO (JD) PCP: MARCIAL MATSON MD REPORT IS CONFIDENTIAL AND NOT TO BE RELEASED WITHOUT AUTHORIZATION [facility] [address] [place] [address] Draft Copies: ~ PATIENT NAME: JOON RABAGO OPERATIVE REPORT DATE OF : 95 REPORT #: [id number] PHYSICIAN: BRONSON HUITRON DO (JD) PCP: MARCIAL MATSON MD REPORT IS CONFIDENTIAL AND NOT TO BE RELEASED WITHOUT AUTHORIZATION
[~2023-09-15 05:37] MED LIST changes: +AMOX TR-K CLV1 EAC1 PO; +CYCLOBENZAPRINE10 MG PO; +ESCITALOPRAM OX10 MG PO; +HALOPERIDOL0.5 MG PO; +IBUPROFEN800 MG PO; +ICAPS AREDS2 C1 EACH PO; +IRON236 MG PO; +NEURONTIN300 MG PO; +ONDANSETRON ODT8 MG PO
[2023-09-15 06:06] VITALS: BP 114/77
--- NOTE | 2023-09-15 07:36 | NUR ---
DS ROUNDS. PT GONE TO PROCEDURE. PROVIDED PRAYER.
--- NOTE | 2023-09-15 09:19 | NUR ---
09/15/23 0919 Isatu Curran PT TO PACU SLEEPING ORAL AIRWAY IN PLACE. O2 VIA MASK, FOGGING NOTED IN MASK.
[2023-09-15 10:03] VITALS: BP 113/62
--- NOTE | 2023-09-15 10:09 | NUR ---
0950: PT RETURNS TO UNIT VIA STRETCHER. DROWSY ON ARRIVAL BUT ANSWERS QUESTIONS APPROPRIATELY. VS, RESP EVEN AND UNLABORED. DENIES NAUSEA AND REPORTS ITALO PAIN LEVEL, 5/10. DESCRIBES PAIN "MILD MENSTRUAL CRAMPS." ICE WATER AND CRACKERS PROVIDED. GILLESPIE DRAINS FLOUROSCENE COLORED URINE AT THE BEDSIDE. POC DISCUSSED AND PT VOICES UNDERSTANDING AND DENIES QUESTIONS AND CONCERNS AT THIS TIME. ATTENTIVE AT THE BEDSIDE. CALL LIGHT WITHIN REACH
[2023-09-15 10:58] VITALS: BP 110/61
--- NOTE | 2023-09-15 11:02 | NUR ---
1015: PT AWAKE AND REPORTS PAIN AND SPASMING. GILLESPIE BALLOON DEFLATED WITH 10MLS OF NS AND CATH REMOVED. 100MLS FLUOROSCENE YELLOW DRAINED FROM GILLESPIE. PT ITALO PO INTAKE. PT PAINFUL BUT DOES NOT WANT TO TAKE NARCOTICS. WILL DISCUSS WITH MD GEETA 1040: TC PLACED TO CONNOR, DO. NEW ORDER RECEIVED TO ADMINISTER 15MG TORADOL IV ONCE. NO FURTHER ORDERS 1050: VSS, RESP EVEN AND UNLABORED. PT CONTS TO DENY NAUSEA AND REPORT PAIN LEVEL 5/10 ALTHOUGH PT STATES PAIN IS NOW UNCOMFORTABLE. TORADOL ADMINSTERED ORDERED FOLLOW BY A 10ML NS FLUSH. HEAT PACK TO ABD. LAP SITES REMAIN UNCHANGED. PT WITHOUT NEEDS AT THIS TIME, CALL LIGHT WITHIN REACH
[2023-09-15 11:49] VITALS: BP 95/73
--- NOTE | 2023-09-15 11:50 | NUR ---
1145: PT WITH REQUEST TO USE BR. VSS, RESP EVEN AND UNLABORED. DENIES NAUSEA AND REPORTS IMPROVED PAIN CONTROL, 10/28. NO CHANGE TO LAP SITES. IV CONVERTED TO SL AND PT DANGLED AT THE BEDSIDE, ITALO WELL. DENIES DIZZINESS AND SOB. AMBULATES TO BR WITH STANDBY FROM THIS RN, STEADY GAIT. SUCCESSFUL FIRST POSTOP VOID, 300MLS. BACK TO ROOM AND DRESSES INDEPENDENTLY FOR DC
--- NOTE | 2023-09-15 12:06 | NUR ---
1155: SL REMOVED WITH CATH TIP INTACT AND PRESSURE APPLIED TO SITE, WNL. DC INSTRUCTIONS PROVIDED AND DISCUSSED. PT VOICES UNDERSTANDING AND DENIES QUESTIONS AND CONCERNS AT THIS TIME. WHEELED OF OF UNIT IN BY THIS RN. TRANSFERS INTO VEHICLE INDEPENDENTLY AND APPROPRIATELY. NO PHYSICAL S/S OF DISTRESS AT THIS TIME
--- NOTE | 2023-09-18 16:03 | PATH ---
[facility] [address] [place], [place] [address] Signed SPECIMEN(S): A UTERUS, CERVIX, AND BILAT TUBES SPECIMEN SOURCE: A. UTERUS, CERVIX, AND BILAT TUBES CLINICAL HISTORY: Abnormal uterine bleeding, endometriosis, endometrioma, pelvic congestion syndrome, dysmenorrhea FINAL PATHOLOGIC DIAGNOSIS: Uterus, cervix and bilateral tubes: - Secretory endometrium, negative for atypical features of evidence of malignancy. - Benign myometrial leiomyoma. - Benign endo- and ectocervix. - Benign bilateral oviducts with incidental benign paratubal serous cysts. JVR:clv MICROSCOPIC EXAMINATION: Histologic sections of all submitted blocks are examined by light microscopy. These findings, together with the gross examination, support the pathologic diagnosis. GROSS DESCRIPTION: The specimen, labeled and designated "Ish Rabago" and designated on the requisition "uterus, cervix, bilateral tubes," is received in formalin and consists of a uterus (131 g, 7.0 cm superior-inferior, 6.9 cm cornu to cornu, 4.7 cm anterior to posterior), attached cervix (2.5 cm in length by 3.4 cm in diameter) with pink-pineda to red-brown cervical mucosa and patent slit-shaped os (2.2 x 0.2 cm), and 2 detached and undesignated fimbriated fallopian tube segments (6.4 cm in length and ranging in diameter from 0.5 to 1.4 cm, and 4.4 cm in length and ranging diameter from 0.5 to 1.3 cm). One fallopian tube segment is arbitrarily inked blue. Both fallopian tube segments are red-brown with multiple serous fluid-filled paratubal cysts (0.3-1.6 cm in greatest dimension), and are sectioned to reveal a pineda-pink soft cut surface with pinpoint lumen. The fimbriae are entirely submitted. The uterine serosa is pink-pineda and smooth. The cervix is sectioned to reveal a pink-pineda herringbone endocervical mucosa (endocervical canal: 2.0 x 1.3 cm). PATIENT NAME: JOON RABAGO PATHOLOGY DATE OF : [birth year] REPORT #: [id number] PHYSICIAN: PAM BEARD PCP: MARCIAL MATSON MD REPORT IS CONFIDENTIAL AND NOT TO BE RELEASED WITHOUT AUTHORIZATION [facility] [address] [place], [place] [address] Signed Sectioning of the uterus reveals an endometrial cavity (4.5 cm superior to inferior by 3.2 cm cornu to cornu) with red-brown endometrial lining that measures up to 0.6 centimeters in thickness. The myometrium (2.1 cm in greatest thickness) is pink-pineda and trabeculated with one white-pineda well-circumscribed intramural nodule (0.5 cm in greatest dimension). Service Dismantler sections are submitted. Cassette Summary: (A1-A4) fallopian tubes and cysts (A5) cervix (A6) endomyometrium and nodule AC (under the direct supervision of a pathologist) The Gross Description was prepared using a voice recognition system. The report was reviewed for accuracy; however, sound-alike word errors, addition and/or deletions may occur. If there is any question about this report, please contact Client Services. ADDITIONAL NOTES: Immunohistochemical and/or in situ hybridization studies if performed in this case included appropriate positive controls that reacted as expected. This test was developed and its performance characteristics determined by [facility]. It has not been cleared or approved by the U.S. Food and Drug Administration. The FDA has determined that such clearance or approval is not necessary. This test is used for clinical purposes. It should not be regarded as investigational or for research. [facility] is certified under the Clinical Laboratory Improvement Amendments of 1988 (CLIA) as qualified to perform high complexity clinical laboratory testing. PERFORMING LABORATORY: Technical component was performed by [facility], [address] [place] [id number] (CLIA# [id number]). Professional interpretation was performed by [facility], [address] [place] [id number] (CLIA#: [id number]). Diagnostician: Gm Portillo MD Pathologist Electronically Signed 09/18/2023 Copies: PATIENT NAME: JOON RABAGO PATHOLOGY DATE OF : [birth year] REPORT #: [id number] PHYSICIAN: SAMIRLazarus Effect PATHOLOGY PCP: MARCIAL MATSON MD REPORT IS CONFIDENTIAL AND NOT TO BE RELEASED WITHOUT AUTHORIZATION [address] [place] [address] Signed ~ PATIENT NAME: JOON RABAGO PATHOLOGY DATE OF : [birth year] REPORT #: [id number] PHYSICIAN: PAM PATHOLOGY PCP: MARCIAL MATSON MD REPORT IS CONFIDENTIAL AND NOT TO BE RELEASED WITHOUT AUTHORIZATION
== END 2023-09-15 11:55 | disposition home or self-care (01) ==
LOC: DS 05:37
PROVIDERS: ATTEND Obstetrics & Gynecology
PROC: 0UT94ZZ Resection of Uterus, Percutaneous Endoscopic Approach (ICD-10-PCS; principal; 2023-09-15 07:30)
PROC: 0UT74ZZ Resection of Bilateral Fallopian Tubes, Percutaneous Endoscopic Approach (ICD-10-PCS; 2023-09-15 07:30)
DX: D25.9 Leiomyoma of uterus, unspecified (principal); N93.9 Abnormal uterine and vaginal bleeding, unspecified; N80.9 Endometriosis, unspecified; N94.89 Other specified conditions associated with female genital organs and menstrual cycle
CPT/HCPCS: 88307; J0131; J0690; J1100; J1885; J2001; J2250; J2405; J2704; J3010; J3475; J3490; J7121

== ENCOUNTER 2024-08-14 11:37 | Emergency (ER) | payer OTHER ==
[~2024-08-14] VITALS: Ht 162.6 cm; Wt 68.5 kg
[2024-08-14] MEDS ORDERED: SODIUM CHLORIDE 0.9% 1,000 ML IV ONE (12:00)
[2024-08-14] MEDS ORDERED: ondansetron HCL 4 MG/2 ML VIAL IV ONE (12:00)
[2024-08-14 12:11] LABS: BASOPHILS 0.6 % (0-2); EOSINOPHILS 0.2 % (0-6); HEMOGLOBIN 14.2 g/dL (12.0-18.0); LYMPHOCYTES 44.5 % (24-44); MCH 29.1 (27-36); MCHC 33.9 g/dl (30-36); MCV 85.9 fl (81-99); MONOCYTES 5.3 % (0-12); NEUTROPHILS 49.4 % (39-80); PLATELET COUNT 232 K/uL (140-440); RBC 4.89 M/ul (4.3-5.7); RDW 13.7 (10.5-15.0)
[2024-08-14] MEDS ORDERED: KETOROLAC TROMETHAMINE 15 MG/ML VIAL IV ONE (12:15)
[2024-08-14] MEDS ORDERED: KETAMINE in NS 50 MG/5 ML SYR IV ONE ×2 (12:15→12:30)
[2024-08-14 12:28] LABS: ALBUMIN 4.6 g/dL (3.4-5.0); ALBUMIN/GLOBULIN RATIO 1.31 (1.1-2.4); ANION GAP 16.7 (7-21); BILIRUBIN, TOTAL 0.8 ng/dL (0.2-1.0); BUN/CREATININE RATIO 8.86 (6.0-28.6); CREATININE, SERUM 0.79 mg/dL (0.55-1.02); POTASSIUM 3.7 mmol/L (3.5-5.1); PROTEIN, TOTAL 8.1 g/dL (6.4-8.2)
[2024-08-14 12:31] LABS: LACTIC ACID, BLOOD 1.1 mmol/L (0.4-2.0)
[2024-08-14 13:04] LABS: BILIRUBIN, URINE NEGATIVE (negative); BLOOD/HGB, URINE NEGATIVE (Negative); KETONE, URINE NEGATIVE (Negative); LEUK ESTERASE, URINE NEGATIVE (negative); NITRITE, URINE NEGATIVE (negative); PH, URINE 6.5 (5-7)
[2024-08-14] MEDS ORDERED: ONDANSETRON ODT8 MG PO (15:21)
[2024-08-14 15:32] VITALS: BP 110/64
== END 2024-08-14 15:33 | disposition home or self-care (01) ==
LOC: ED 11:37
PROVIDERS: Emergency Medicine
DX: R19.03 Right lower quadrant abdominal swelling, mass and lump (principal); Z90.710 Acquired absence of both cervix and uterus; Z88.5 Allergy status to narcotic agent; Z79.899 Other long term (current) drug therapy
CPT/HCPCS: 36415; 76830; 76856; 80053; 81003; 83605; 83690; 85025; 96374; 96375; 99284-25; J1885; J2405; J3490; J7030

== ENCOUNTER 2024-09-16 09:38 | Emergency (ER) | payer OTHER ==
[2024-09-16 10:06] LABS: BILIRUBIN, URINE NEGATIVE (negative); BLOOD/HGB, URINE NEGATIVE (Negative); KETONE, URINE NEGATIVE (Negative); LEUK ESTERASE, URINE NEGATIVE (negative); NITRITE, URINE NEGATIVE (negative)
[2024-09-16] MEDS ORDERED: ondansetron HCL 4 MG/2 ML VIAL IV ONE (10:15)
[2024-09-16] MEDS ORDERED: SODIUM CHLORIDE 0.9% 1,000 ML IV ONE (10:15)
[2024-09-16] MEDS ORDERED: KETOROLAC TROMETHAMINE 30 MG/ML VIAL IV ONE (10:15)
[2024-09-16 10:33] LABS: ALBUMIN 4.2 g/dL (3.4-5.0); ALBUMIN/GLOBULIN RATIO 1.27 (1.1-2.4); BILIRUBIN, TOTAL 0.7 ng/dL (0.2-1.0); BUN/CREATININE RATIO 16.17 (6.0-28.6); CALCIUM 8.8 mg/dL (8.5-10.1); CREATININE, SERUM 0.68 mg/dL (0.55-1.02); PROTEIN, TOTAL 7.5 g/dL (6.4-8.2)
[2024-09-16] MEDS ORDERED: KETOROLAC TROME10 MG PO (11:58)
[2024-09-16 12:10] VITALS: BP 105/59
== END 2024-09-16 12:10 | disposition home or self-care (01) ==
LOC: ED 09:38
PROVIDERS: Emergency Medicine
DX: R10.31 Right lower quadrant pain (principal); Z88.5 Allergy status to narcotic agent
CPT/HCPCS: 36415; 74177; 80053; 81003; 83690; 96375; 99284-25; J1885; J2405; J7030; Q9967

== ENCOUNTER 2024-11-24 07:20 | Day surgery (SDC) | payer OTHER ==
[2024-11-21 14:11] VITALS: BP 108/67
[~2024-11-24] VITALS: Ht 162.6 cm; Wt 68.2 kg
[~2024-11-24 07:20] MED LIST changes: +IBLOOD GLUCOSE TEST STRIP 1 EA TEST VI PRN; +KETOROLAC TROME10 MG PO; +LACTATED RINGER'S 1,000 ML IV SCH; +LIDOCAINE HCL 1% 5 ML SDV INJ ONE
[2024-11-24 07:28] VITALS: BP 110/67
[2024-11-24] MEDS ORDERED: fentaNYL citrate 50 MCG/ML SDV IV PRN (07:45)
[2024-11-24] MEDS ORDERED: IBLOOD GLUCOSE TEST STRIP 1 EA TEST VI PRN (07:45)
[2024-11-24] MEDS ORDERED: ondansetron HCL 4 MG/2 ML VIAL IV PRN ×2 (07:45→11:15)
[2024-11-24] MEDS ORDERED: NALOXONE HCL 0.4 MG SYR IV PRN ×2 (07:45→11:15)
[2024-11-24] MEDS ORDERED: MIDAZOLAM HCL 2 MG/2 ML VIAL IV PRN (07:45)
[2024-11-24] MEDS ORDERED: ROCURONIUM BROMIDE 50 MG/5 ML SYR ONE (07:56)
[2024-11-24] MEDS ORDERED: propofoL 200 MG/20 ML VIAL ONE (07:56)
[2024-11-24] MEDS ORDERED: LIDOCAINE HCL 2% 5 ML SDV ONE (07:56)
[2024-11-24] MEDS ORDERED: KETOROLAC TROMETHAMINE 30 MG/ML VIAL ONE (07:56)
[2024-11-24] MEDS ORDERED: ondansetron HCL 4 MG/2 ML VIAL ONE (07:56)
[2024-11-24] MEDS ORDERED: DEXAMETHASONE SOD PHOS 4 MG/ML VIAL ONE (07:56)
[2024-11-24] MEDS ORDERED: MIDAZOLAM HCL 2 MG/2 ML VIAL ONE (07:58)
[2024-11-24] MEDS ORDERED: fentaNYL citrate 100 MCG/2 ML VIAL ONE (09:41)
[2024-11-24] MEDS ORDERED: ACETAMINOPHEN 1,000 MG/100 ML VIAL ONE (09:50)
[2024-11-24] MEDS ORDERED: SUGAMMADEX SODIUM 200 MG/2 ML ML ONE (09:58)
[2024-11-24] MEDS ORDERED: SEVOFLURANE 250 ML BTL INH ONE (10:36)
--- NOTE | 2024-11-24 11:01 | NUR ---
11/24/24 [address] [place] 1046- PT ARRIVES TO PACU, SEMI MCMAHAN POSITION. OPA IN PLACE, O2 AT 6L PER MASK, BREATHING EVEN AND NON LABORED. PT NON REACTIVE TO STIMULUS, TREMOROUS ON ARRIVAL. DRESSINGS IN PLACE, CDI. LR INFUSING TO RFA IV. ABD SOFT, NON DISTENDED. ALL MONITORS IN PLACE. 1049- PT REACTIVE AND MOVING HEAD SIDE TO SIDE, ATTEMPTING TO LIFT HEAD OFF PILLOW. AFTER SEVERAL PROMPTS, PT FOLLOWS COMMANDS AND OPA REMOVED AT THIS TIME. O2 LEFT IN PLACE. PT FALLS BACK TO SLEEP, REASSURED PROCEDURE COMPLETE.
[2024-11-24] MEDS ORDERED: FAMOTIDINE 20 MG TAB PO PRN (11:15)
[2024-11-24] MEDS ORDERED: MAGNESIUM HYDROXIDE/AL HYDROX 30 ML CUP PO PRN (11:15)
[2024-11-24] MEDS ORDERED: METOCLOPRAMIDE HCL 10 MG/2 ML SDV IV PRN (11:15)
[2024-11-24] MEDS ORDERED: OXYCODONE/APAP 5/325 TAB PO PRN (11:15)
[2024-11-24 11:24] VITALS: BP 100/58
--- NOTE | 2024-11-24 11:27 | NUR ---
LE 1125: PT IS BACK TO DS FROM PACU. SHE IS AT HER BASELINE. SHE HAS NO C/O NAUSEA, REPORTS TOLERABLE PAIN LEVEL 3/10. HER ONLY COMPLAINT IS BEING COLD. WATER ON BEDSIDE TABLE. CALL LIGHT WITHIN REACH. IS AT THE BEDSIDE. NO ADDITIONAL NEEDS AT THIS TIME. DC CRITERIA REVIEWED WITH PT AND .
[2024-11-24] MEDS ORDERED: HYDROmorphone HCL 1 MG/ML SYR IV PRN (11:30)
--- NOTE | 2024-11-24 11:52 | NUR ---
LE 1150: PT TURNS SPECIAL EDUCATION EDUCATIONAL ASSISTANT LIGHT. SHE INDICATES THAT SHE NEEDS TO VOID. SHE IS ASSISTED UP OOB WITH STAND BY ASSIST. SHE AMBUALTES TO THE BATHROOM INDEPENDENTLY.
--- NOTE | 2024-11-24 11:56 | NUR ---
JONES 1155: PT IS ABLE TO VOID 100MLS OF YELLOW URINE. SHE AMBULATES BACK TO HER ROOM. SHE IS GIVEN APPLESAUCE.
[2024-11-24 12:17] VITALS: BP 94/47
--- NOTE | 2024-11-24 12:39 | NUR ---
LE 1215: PT IS TOLERATING WATER AND APPLE SAUCE. SHE HAS MET ALL DC CRITERIA. SHE INDICATES THAT SHE WOULD LIKE TO GO HOME. SHE IS EDUCATED ON HOW TO BEST DRESS HERSELF AND TO OPEN HER CURTAIN WHEN READY. LE 1225: PT IS GIVEN VERBAL AND WRITTEN DC INSTRUCTIONS. SHE VERBALIZES UNDERSTANDING. NO QUESTIONS AT THIS TIME. PT IS TAKEN TO PERSONAL VEHICLE VIA WC, SHE TRANSFERS HERSELF WITHOUT ISSUES.
--- NOTE | 2024-11-26 01:44 | OR ---
[facility] [address] [place], [place] [address] Signed DATE OF OPERATION: 11/24/2024 SURGEON: Bronson Huitron DO PREOPERATIVE DIAGNOSES: 1. Dyspareunia. 2. Persistent pelvic mass. POSTOPERATIVE DIAGNOSES: 1. Dyspareunia. 2. Right retroperitoneal mass/cyst of the broad ligament, likely endometrioma. 3. Pelvic adhesions, minimal. PROCEDURES PERFORMED: 1. Laparoscopic excision of pelvic mass, likely endometrioma. 2. Lysis of adhesions, minimal. ANESTHESIA: General. ESTIMATED BLOOD LOSS: 10 mL. SPECIMENS: Right retroperitoneal mass/cyst of the broad ligament, likely endometrioma. DRAINS: None. FINDINGS: Normal external genitalia, clitoris, urethral meatus, and vaginal cuff with excellent apical support and no masses. On laparoscopy, normal liver, stomach, appendix, and bilateral ovaries. Surgically absent uterus, cervix, and fallopian tubes. In the right, retroperitoneum just inferior to the round ligament, there is a cyst/mass, likely representing an endometrioma. Normal ureter with course followed, it is lateral to the cyst. Hemostasis at the end of the procedure. COMPLICATIONS: None. Electronically Signed By: BRONSON HUITRON DO (JD) 11/26/24 0144 PATIENT NAME: JOON RABAGO OPERATIVE REPORT DATE OF : [birth year] REPORT #: [id number] PHYSICIAN: BRONSON HUITRON DO (JD) PCP: MARCIAL MATSON MD REPORT IS CONFIDENTIAL AND NOT TO BE RELEASED WITHOUT AUTHORIZATION [facility] [address] [place], [place] [address] Signed INDICATIONS FOR THE PROCEDURE: Mrs. Rabago is a very pleasant 28-year-old female, who is status post hysterectomy. She has had a persistent mass and pain on imaging consistent with possible paraovarian cyst. Recommended laparoscopic evaluation and possible excision of mass. Risks, benefits, and alternatives were discussed in detail with the patient. The patient understands and wished to proceed with the procedure. DESCRIPTION OF PROCEDURE: The patient was taken the OR. A time-out was performed to confirm correct patient, correct procedure. General anesthesia was adequately established. The patient was prepped and draped in dorsal lithotomy position with feet in Yellofin stirrups. ICPs were on and running and no preoperative antibiotics or heparin was indicated. Vasquez catheter was inserted and a sponge stick was placed in the vagina. After evaluating external genitalia, vagina, and vaginal cuff, which were all normal. Surgeon's gloves were changed. Attention was turned to the abdomen. The base of the umbilicus was infiltrated with 0.25% Marcaine with epinephrine. A 5 mm stab incision was made at the base of the umbilicus. A 5 mm direct entry port was placed and pneumoperitoneum was established without difficulty. The 5 mm news production assistant ports were placed in the left lower quadrant, right lower quadrant under direct visualization without complication. The scope was then placed into one of the lateral ports and scant omental adhesions were noted near the direct entry point. These were taken down with LigaSure device and no complications of entry were noted. Survey of the abdomen and pelvis was then performed. Normal liver, stomach, and appendix were appreciated and photographed. Attention was turned to the pelvis. The patient with scant omental adhesions to the vaginal cuff and over the ovaries bilaterally, these were taken down easily with the LigaSure device. Normal bilateral ovaries were appreciated and surgically absent uterus, fallopian tubes, and cervix. The right pelvis was evaluated and a dark retroperitoneal cyst was noted in the broad ligament just inferior to the round ligament on the right. The course of the pelvic vessels and ureter were evaluated starting in the pelvic brim of falling down and noted to be lateral to the mass. The peritoneum was bluntly dissected and the cyst delivered through the parting of the peritoneum. A small stalk was noted feeding the cyst and this was carefully fulgurated and divided using LigaSure device after ensuring the ureter and other retroperitoneal structures were lateral to this. The cyst was then placed in an EndoCatch bag and delivered without difficulty. This was sent to Pathology for further evaluation. The pelvis was irrigated and found to be hemostatic. Tisseel was applied to the dissection area without difficulty, and again the ureter was noted to be well away from the dissection planes. Pneumoperitoneum was reduced and hemostasis was assured. The trocars were removed and trocar sites repaired using 4-0 Vicryl. The patient was then taken to PACU in good and stable condition. Sponge, needle, and instrument counts were correct x2 at the end of the procedure. Electronically Signed By: BRONSON DIOR) DO GEETA 11/26/24 0144 PATIENT NAME: JOON RABAGO OPERATIVE REPORT DATE OF : [birth year] REPORT #: [id number] PHYSICIAN: BRONSON HUITRON) PCP: MARCIAL MATSON MD REPORT IS CONFIDENTIAL AND NOT TO BE RELEASED WITHOUT AUTHORIZATION [address] [address] Signed Bronson Huitron DO JDW/MODL /[id number] Copies: ~ Electronically Signed By: BRONSON HUITRON DO (JD) 11/26/24 0144 PATIENT NAME: JOON RABAGO OPERATIVE REPORT DATE OF : [birth year] REPORT #: [id number] PHYSICIAN: BRONSON HUITRON DO (JD) PCP: MARCIAL MATSON MD REPORT IS CONFIDENTIAL AND NOT TO BE RELEASED WITHOUT AUTHORIZATION
--- NOTE | 2024-11-28 14:07 | PATH ---
[facility] [address] [place], [place] [address] Signed SPECIMEN(S): A RIGHT BROAD LIGAMENT MASS SPECIMEN SOURCE: A. RIGHT BROAD LIGAMENT MASS CLINICAL HISTORY: Right paraovarian cyst FINAL PATHOLOGIC DIAGNOSIS: Right broad ligament mass: - Paratubal cyst BRP MICROSCOPIC EXAMINATION: Histologic sections of all submitted blocks are examined by light microscopy. These findings, together with the gross examination, support the pathologic diagnosis. GROSS DESCRIPTION: The specimen, labeled and designated "Hima, right broad ligament mass," is received in formalin and consists of violaceous, soft, smooth, cyst-like tissue fragment is measure 0.8 cm in greatest dimension. Sectioning through the specimen reveal cyst that measure 0.7 cm in greatest dimension. Cyst is filled with a hemorrhagic fluid. Entirely submitted in (A1). JS (under the direct supervision of a pathologist) The Gross Description was prepared using a voice recognition system. The report was reviewed for accuracy; however, sound-alike word errors, addition and/or deletions may occur. If there is any question about this report, please contact Client Services. ADDITIONAL NOTES: Immunohistochemical and/or in situ hybridization studies if performed in this case included appropriate positive controls that reacted as expected. This test was developed and its performance characteristics determined by [employer]. It has not been cleared or approved by the U.S. Food and Drug Administration. The FDA has determined that such clearance or approval is not necessary. This test is used for clinical purposes. It should not be regarded as investigational or for research. [employer] is certified under the Clinical Laboratory Improvement PATIENT NAME: JOON ZELAYA PATHOLOGY DATE OF : [birth year] REPORT #: [id number] PHYSICIAN: PAM BEARD PCP: MARCIAL MATSON MD REPORT IS CONFIDENTIAL AND NOT TO BE RELEASED WITHOUT AUTHORIZATION [address] [place] [address] Signed Amendments of 1988 (CLIA) as qualified to perform high complexity clinical laboratory testing. PERFORMING LABORATORY: Technical component was performed by [facility] [facility], [address] [place] [address] (CLIA# [id number]). Professional interpretation was performed by [facility], [address] [place] [address] (CLIA#: [id number]). Diagnostician: Luis Eduardo Lantigua MD Pathologist Electronically Signed 11/28/2024 Copies: ~ PATIENT NAME: JOON ZELAYA PATHOLOGY DATE OF : [birth year] REPORT #: [id number] PHYSICIAN: PAM BEARD PCP: MARCIAL MATSON MD REPORT IS CONFIDENTIAL AND NOT TO BE RELEASED WITHOUT AUTHORIZATION
== END 2024-11-24 12:25 | disposition home or self-care (01) ==
LOC: DS 07:20
PROVIDERS: ATTEND Obstetrics & Gynecology
PROC: 0WBH4ZZ Excision of Retroperitoneum, Percutaneous Endoscopic Approach (ICD-10-PCS; principal; 2024-11-24 09:15)
DX: N83.8 Other noninflammatory disorders of ovary, fallopian tube and broad ligament (principal); N94.10 Unspecified dyspareunia; N73.6 Female pelvic peritoneal adhesions (postinfective); F25.9 Schizoaffective disorder, unspecified; M41.9 Scoliosis, unspecified; Z79.899 Other long term (current) drug therapy; Z88.5 Allergy status to narcotic agent; Z88.8 Allergy status to other drugs, medicaments and biological substances
CPT/HCPCS: 00840; J0131; J1100; J1885; J2003; J2250; J2405; J2704; J3010; J3490; J7121

== ENCOUNTER 2025-06-07 14:48 | Emergency (ER) | payer OTHER ==
[~2025-06-07] VITALS: Ht 162.6 cm; Wt 71.0 kg
[~2025-06-07 14:48] MED LIST changes: -IBLOOD GLUCOSE TEST STRIP 1 EA TEST VI PRN; -LACTATED RINGER'S 1,000 ML IV SCH; -LIDOCAINE HCL 1% 5 ML SDV INJ ONE
[2025-06-07] MEDS ORDERED: SODIUM CHLORIDE 0.9% 1,000 ML IV PRN (15:00)
[2025-06-07 15:12] LABS: BASOPHILS 0.3 % (0.1-1.2); EOSINOPHILS 0.3 % (0.7-5.8); LYMPHOCYTES 7.1 % (19.3-51.7); MCH 29.2 PG (25.6-32.2); MCHC 34.3 g/dL (32.2-35.5); MCV 85.0 fL (79.4-94.8); MONOCYTES 10.4 % (4.7-12.5); NEUTROPHILS 81.6 % (34.0-71.1); RBC 4.66 M/uL (3.93-5.22)
[2025-06-07] MEDS ORDERED: KETOROLAC TROMETHAMINE 15 MG/ML VIAL IV ONE (15:15)
[2025-06-07] MEDS ORDERED: LORazepam 2 MG/ML VIAL IV ONE (15:15)
[2025-06-07 15:23] LABS: INR 1.04 (0.80-1.30); PROTIME 12.9 Sec (11.2-14.2)
[2025-06-07 15:23] LABS: BLOOD/HGB, URINE NEGATIVE (Negative); KETONE, URINE SMALL (Negative); LEUK ESTERASE, URINE NEGATIVE (negative); NITRITE, URINE NEGATIVE (negative)
[2025-06-07 15:29] LABS: ALT (SGPT) 26.0 U/L (14-59); AST (SGOT) 14.0 U/L (15-37); GLOMERULAR FILTRATION RATE,EST 120.0 mL/min (>60); PROTEIN, TOTAL 7.7 g/dL (6.4-8.2); UREA NITROGEN 10.0 mg/dL (7-18)
[2025-06-07 15:34] LABS: LACTIC ACID, BLOOD 0.5 mmol/L (0.4-2.0)
[2025-06-07 16:34] LABS: AMPHETAMINES, URINE NEGATIVE (NEGATIVE); BARBITURATES, URINE NEGATIVE (NEGATIVE); BENZODIAZEPINE, URINE NEGATIVE (NEGATIVE); CANNABINOID, URINE NEGATIVE (NEGATIVE); COCAINE, URINE NEGATIVE (NEGATIVE); ECSTASY, URINE NEGATIVE (NEGATIVE); FENTANYL, URINE NEGATIVE (NEGATIVE); METHADONE, URINE NEGATIVE (NEGATIVE); OPIATES, URINE NEGATIVE (NEGATIVE); OXYCODONE, URINE NEGATIVE (NEGATIVE); PHENCYCLIDINE, URINE NEGATIVE (NEGATIVE)
[2025-06-07] MEDS ORDERED: ACETAMINOPHEN 500 MG TAB PO ONE (17:00)
[2025-06-07] MEDS ORDERED: NAPROSYN500 MG PO (17:03)
[2025-06-07 17:36] VITALS: BP 98/57
== END 2025-06-07 17:39 | disposition home or self-care (01) ==
LOC: ED 14:48
PROVIDERS: Emergency Medicine
DX: M54.50 Low back pain, unspecified (principal); F43.10 Post-traumatic stress disorder, unspecified; Z88.5 Allergy status to narcotic agent
CPT/HCPCS: 36415; 71045; 80053; 80307; 81003; 83605; 85025; 85610; 87040; 96361; 96365; 96375; 99283-25; A9270; J0696; J1885; J2060

== ENCOUNTER 2025-06-13 19:52 | Emergency (ER) | payer OTHER ==
[~2025-06-13] VITALS: Ht 162.6 cm; Wt 70.0 kg
[~2025-06-13 19:52] MED LIST changes: +NAPROSYN500 MG PO
[2025-06-13] MEDS ORDERED: KETOROLAC TROMETHAMINE 30 MG/ML VIAL IM ONE (20:15)
[2025-06-13] MEDS ORDERED: CEPHALEXIN500 M1 PO (20:33)
[2025-06-13] MEDS ORDERED: CEPHALEXIN MONOHYDRATE 500 MG HOME.PACK PO ONE (20:45)
[2025-06-13 21:16] VITALS: BP 139/83
== END 2025-06-13 21:21 | disposition home or self-care (01) ==
LOC: ED 19:52
DX: S61.310A Laceration without foreign body of right index finger with damage to nail, initial encounter (principal); Z88.5 Allergy status to narcotic agent; W23.0XXA Caught, crushed, jammed, or pinched between moving objects, initial encounter
CPT/HCPCS: 73140; 96372; 99283; A9270; J1885